=== PATIENT | female | born 1990 | race American Indian/Alaskan Native ===

== ENCOUNTER 2016-09-24 08:35 | Emergency (ER) | payer BC ==
[2016-09-24 08:55] VITALS: BP 126/73
--- NOTE | 2016-09-24 12:47 | Emergency Department Report ---
ED Headache HPI - General Chief Complaint: Headache Stated Complaint: PERSISTENT HEADACHES Time Seen by Provider: 09/24/16 12:30 - History of Present Illness Initial Comments: 26-year-old female past medical history migraine headaches presented with complaint of migraine headaches this week. Patient is awake alert and oriented 3 not in acute distress denies any fever or chills no neck rigidity no chest pain or shortness of breath no associated dizziness no diaphoresis no tinnitus no palpitations. Denies any dysuria no increased urinary frequency and no abdominal pain no reports of nausea or vomiting. Patient states that she ran out of her Fioricet prescription. The headache she has been experiencing intermittently throughout the week are classic of her migraine headaches. Patient has not followed up with her neurologist even though she has made appointments in the past. Patient denies any paresthesias no paralysis of upper or lower extremities is awake alert and oriented 3 fully lucid during clinical interview and able to answer questions appropriately no signs of clinical confusion or altered mental status. Denies any head trauma Timing/Duration: 1 week Quality: moderate Head Injury Location: frontal Recent Head Trauma: frequent headaches, chronic headaches Modifying Factors: improves with: medication Associated Symptoms: denies symptoms Allergies/Adverse Reactions: Allergies No Known Allergies Allergy (Unverified 09/24/16 08:47) Home Medications: Ambulatory Orders Butalb/Acetamin/Caff 50-325-40 [Fioricet] 1 tab PO Q6HR PRN #6 tab 09/24/16 ED Review of Systems ROS: Stated complaint: PERSISTENT HEADACHES Other details as noted in HPI ED Past Medical Hx - Past Medical History Additional medical history: Headache - Surgical History Past Surgical History?: Yes Additional Surgical History: Achilles Tendon - Social History Smoking Status: Never Smoker Substance Use Type: Alcohol - Medications Home Medications: Home Medications Medication Instructions Recorded Confirmed Last Taken Type Butalb/Acetamin/Caff 50-325-40 1 tab PO Q6HR PRN #6 tab 09/24/16 Unknown Rx [Fioricet] ED Physical Exam - General Limitations: No Limitations General appearance: alert, in no apparent distress - Head Head exam: Present: atraumatic, normocephalic - Eye Eye exam: Present: normal appearance, PERRL, EOMI - ENT ENT exam: Present: mucous membranes moist - Neck Neck exam: Present: normal inspection - Respiratory Respiratory exam: Present: normal lung sounds bilaterally. Absent: respiratory distress - Cardiovascular Cardiovascular Exam: Present: regular rate, normal rhythm. Absent: systolic murmur, diastolic murmur, rubs, gallop - GI/Abdominal GI/Abdominal exam: Present: soft, normal bowel sounds - Extremities Exam Extremities exam: Present: normal inspection - Back Exam Back exam: Present: normal inspection - Neurological Exam Neurological exam: Present: alert, oriented X3, CN II-XII intact, normal gait - Expanded Neurological Exam Expanded Patient oriented to: Present: person, place, time Speech: Present: fluid speech Cranial nerves: EOM's Intact: Normal, Gag Reflex: Normal, Tongue Deviation: Normal, Nystagmus: Normal, Facial Sensation: Normal, Facial Palsy with Forehead Movement: Normal, Facial Palsy without Forehead Movement: Normal Cerebellar function: Finger to Nose: Normal, Heel to Hinson: Normal Upper motor neuron: Stevie Neglect: Normal, Pronator Drift: Normal, Babinski Sign : Normal, Sensory Extinction: Normal Sensory exam: Upper Extremity Light Touch: Normal, Upper Extremity Pin Prick: Normal, Upper Extremity Temperature: Normal, UE 2 Point Discrimination: Normal, Lower Extremity Light Touch: Normal, Lower Extremity Pin Prick: Normal, Lower Extremity Temperature: Normal, LE 2 Point Discrimination: Normal Motor strength exam: RUE: 5, LUE: 5, RLE: 5, LLE: 5 DTR: bicep (R): 3+, bicep (L): 3+, tricep (R): 3+, tricep (L): 3+, knee (R): 3+ , knee (L): 3+, ankle (R): 3+, ankle (L): 3+ Best Eye Response ([place]): (4) open spontaneously Best Motor Response (Bascom): (6) obeys commands Best Verbal Response (Bascom): (5) oriented [place] Total: 15 - Psychiatric Psychiatric exam: Present: normal affect, normal mood - Skin Skin exam: Present: warm, dry, intact, normal color. Absent: rash ED Course Vital Signs 09/24/16 08:48 Temperature 99.0 F Pulse Rate 70 Respiratory 16 Rate Blood Pressure 126/73 O2 Sat by Pulse 100 Oximetry ED Medical Decision Making - Medical Decision Making A/P: Migraine headache 1- patient is completely asymptomatic at this time during clinical exam, no neurological deficits no hemiparesis no upper or lower extremity extremities, paresthesias no cranial nerve deficits on clinical exam cranial nerves I through XII grossly intact. 2- case discussed with Dr. Hoskins 3- will refer patient to primary care and neurology for migraine management 4-will give short prescription for Fioricet and event patient does experience migraine headache Critical care attestation.: If time is entered above; I have spent that time in minutes in the direct care of this critically ill patient, excluding procedure time. ED Disposition Clinical Impression: Migraine headache Qualifiers: Migraine type: without aura Status migrainosus presence: without status migrainosus Intractability: not intractable Qualified Code(s): G43.009 - Migraine without aura, not intractable, without status migrainosus Disposition: DISCHARGED TO HOME OR SELFCARE Is pt being admited?: No Does the pt Need Aspirin: No Condition: Stable Instructions: Migraine Headache (ED) Prescriptions: Butalb/Acetamin/Caff 50-325-40 [Fioricet] 1 tab PO Q6HR PRN #6 tab PRN Reason: Headache Referrals: CHELSEA CONTRERAS MD [Primary Care Provider] - 3-5 Days ELIZABETH MORELOS MD [Staff Physician] - 3-5 Days ROBBY HUITRON MD [Staff Physician] - 3-5 Days [facility] [Outside] - 3-5 Days Forms: Work/School Release Form(ED) Time of Disposition: 12:46
== END 2016-09-24 12:55 | disposition home or self-care (01) ==
LOC: ED 08:35
DX: G43.009 Migraine without aura, not intractable, without status migrainosus (principal)
CPT/HCPCS: 99282

== ENCOUNTER 2021-11-24 23:41 | Emergency (ER) | payer BC, OTHER ==
[2021-11-25 00:13] VITALS: BP 126/88
[2021-11-25 00:45] LABS: Bacteria,Urine 1+ /HPF (Negative); Bilirubin,Urine NEG (Negative); Blood,Urine NEG (Negative); Color,Urine Yellow (Yellow); Protein,Urine <15 mg/dL mg/dL (Negative); Urobilinogen,Urine < 2.0 mg/dL (<2.0)
[2021-11-25 01:12] LABS: Basophils % (Auto) 0.7 % (0.0-1.8); Eosinophils # (Auto) 0.1 K/mm3 (0.0-0.4); Hematocrit 37.4 % (30.3-42.9); Hemoglobin 12.2 gm/dl (10.1-14.3); Lymphocytes # (Auto) 1.3 K/mm3 (1.2-5.4); Lymphocytes % (Auto) 33.1 % (13.4-35.0); Mean Corpuscular HGB Conc 33 % (30-34); Mean Corpuscular Volume 93 fl (79-97); Monocytes # (Auto) 0.5 K/mm3 (0.0-0.8); Platelet Count 280 K/mm3 (140-440); Red Blood Count 4.03 M/mm3 (3.65-5.03); Red Cell Distribution Width 14.2 % (13.2-15.2)
[2021-11-25 01:35] LABS: Alanine Aminotransferase 22 units/L (7-56); Albumin 4.4 g/dL (3.9-5); Blood Urea Nitrogen 8 mg/dL (7-17); Calcium 9.5 mg/dL (8.4-10.2); Hemolysis Index 5
[2021-11-25 01:56] LABS: BUN/Creatinine Ratio 11
--- NOTE | 2021-11-25 02:31 | Emergency Department Report ---
ED Female HPI - General Chief complaint: Abdominal Pain Stated complaint: BLADDER PAIN Source: patient Mode of arrival: Ambulatory Limitations: No Limitations - History of Present Illness Initial comments: Patient is a 31-year-old -Burm[place] female with a history of migraine headaches and bladder spasms and was status post bladder pacemaker placement 3 months ago presents to the ED with complaint of acute onset persistent dysuria, urinary frequency and urgency, and suprapubic pressure and pain for the last 1 week, worse in the last 2 days. Patient states that she believes that her bladder pacemaker has been working but that the symptoms have been persistent and constant in the last 4 days. Patient denies fever, chills, nausea, vomiting, dizziness, syncope, diarrhea, low back pain, chest pain or shortness of breath, headache or low back pain. MD Complaint: dysuria, pelvic pain (Suprapubic pain), other (Urinary frequency and urgency) -: Sudden, week(s) (1) Location: suprapubic Radiation: non-radiating Severity: severe Severity scale (0 -10): 7 Quality: burning, aching Consistency: constant Improves with: none Worsens with: urination Are you Now?: No Associated Symptoms: denies other symptoms, abdominal pain (Suprapubic pain and pressure), dysuria. denies: vaginal discharge, vaginal bleeding, nausea/vomiting, fever/chills, headaches, loss of appetite, hematuria, rash, seizure, shortness of breath, syncope, weakness - Related Data Sexually active: Yes Previous Rx's Medication Instructions Recorded Last Taken Type Butalb/Acetamin/Caff 50-325-40 1 tab PO Q6HR PRN #6 tab 09/24/16 Unknown Rx [Fioricet] Ibuprofen [Motrin] 800 mg PO Q8HR PRN #30 tablet 11/25/21 Unknown Rx Oxybutynin [Ditropan] 5 mg PO TID #90 tab 11/25/21 Unknown Rx Phenazopyridine [Pyridium] 200 mg PO TID #24 tab 11/25/21 Unknown Rx cephALEXin [Keflex] 500 mg PO Q8HR #30 cap 11/25/21 Unknown Rx Allergies Allergy/AdvReac Type Severity Reaction Status Date / Time No Known Allergies Allergy Unverified 09/24/16 08:47 ED Review of Systems ROS: Stated complaint: BLADDER PAIN Other details as noted in HPI Constitutional: denies: chills, fever Eyes: denies: eye pain, eye discharge, vision change ENT: denies: ear pain, throat pain Respiratory: denies: cough, shortness of breath, wheezing Cardiovascular: denies: chest pain, palpitations Endocrine: no symptoms reported Gastrointestinal: abdominal pain (Suprapubic pressure and pain). denies: nausea, vomiting, diarrhea, constipation, hematemesis, melena, hematochezia Genitourinary: urgency, dysuria, frequency. denies: discharge, abnormal menses, dyspareunia Musculoskeletal: denies: back pain, joint swelling, arthralgia Skin: denies: rash, lesions Neurological: denies: headache, weakness, paresthesias Psychiatric: denies: anxiety, depression Hematological/Lymphatic: denies: easy bleeding, easy bruising ED Past Medical Hx - Past Medical History Additional medical history: Headache - Surgical History Additional Surgical History: Achilles Tendon - Social History Smoking Status: Never Smoker Substance Use Type: Alcohol - Medications Home Medications: Home Medications Medication Instructions Recorded Confirmed Last Taken Type Butalb/Acetamin/Caff 50-325-40 1 tab PO Q6HR PRN #6 tab 09/24/16 Unknown Rx [Fioricet] Ibuprofen [Motrin] 800 mg PO Q8HR PRN #30 tablet 11/25/21 Unknown Rx Oxybutynin [Ditropan] 5 mg PO TID #90 tab 11/25/21 Unknown Rx Phenazopyridine [Pyridium] 200 mg PO TID #24 tab 11/25/21 Unknown Rx cephALEXin [Keflex] 500 mg PO Q8HR #30 cap 11/25/21 Unknown Rx ED Physical Exam - General Limitations: No Limitations General appearance: alert, in no apparent distress - Head Head exam: Present: atraumatic, normocephalic, normal inspection - Eye Eye exam: Present: normal appearance, PERRL, EOMI Pupils: Present: normal accommodation - ENT ENT exam: Present: normal exam, normal orophraynx, mucous membranes moist, TM's normal bilaterally, normal external ear exam - Neck Neck exam: Present: normal inspection, full ROM. Absent: tenderness - Respiratory Respiratory exam: Present: normal lung sounds bilaterally. Absent: respiratory distress, wheezes, rales, rhonchi, stridor, chest wall tenderness, accessory muscle use, decreased breath sounds, prolonged expiratory - Cardiovascular Cardiovascular Exam: Present: regular rate, normal rhythm, normal heart sounds. Absent: systolic murmur, diastolic murmur, rubs, gallop - GI/Abdominal GI/Abdominal exam: Present: soft, tenderness (Palpable suprapubic tenderness), normal bowel sounds. Absent: guarding, rebound, hyperactive bowel sounds, hypoactive bowel sounds, organomegaly, mass - Bi-manual exam: Present: other (Pelvic exam deferred at this time) - Extremities Exam Extremities exam: Present: normal inspection, full ROM, normal capillary refill. Absent: tenderness - Back Exam Back exam: Present: normal inspection, full ROM. Absent: tenderness, CVA tenderness (R), CVA tenderness (L), muscle spasm, paraspinal tenderness, vertebral tenderness - Neurological Exam Neurological exam: Present: alert, oriented X3, CN II-XII intact, normal gait, reflexes normal - Psychiatric Psychiatric exam: Present: normal affect, normal mood - Skin Skin exam: Present: warm, dry, intact, normal color. Absent: rash ED Course Vital Signs 11/25/21 00:07 Temperature 98.6 F Pulse Rate 66 Respiratory 18 Rate Blood Pressure 126/88 O2 Sat by Pulse 100 Oximetry ED Medical Decision Making - Lab Data Result diagrams: 11/25/21 00:53 11/25/21 00:53 - Radiology Data [facility] [address] [place] [address] Cat Scan Report Signed Patient: ANSELMO HOWARD MR#: [id number] : 1990 Acct:[id number] Age/Sex: 31 / F ADM Date: 11/24/21 Loc: ED Attending Dr: Ordering Physician: ALLI STARKEY Date of Service: 11/25/21 Procedure(s): CT abdomen pelvis wo con Accession Number(s): [id number] cc: ALIL STARKEY CT ABDOMEN AND PELVIS WITHOUT CONTRAST INDICATION / CLINICAL INFORMATION: Pt complains of lower abdominal pain. TECHNIQUE: Axial CT images were obtained through the abdomen and pelvis without IV contrast. All CT scans at this location are performed using CT dose reduction for ALARA by means of automated exposure control. COMPARISON: None available. FINDINGS: LOWER CHEST: No significant abnormality of the imaged chest. LIVER: No significant abnormality. GALLBLADDER: No significant abnormality. BILE DUCTS: No significant abnormality. SPLEEN: No significant abnormality. PANCREAS: No significant abnormality. ADRENALS: No significant abnormality. RIGHT KIDNEY / URETER: No significant abnormality. LEFT KIDNEY / URETER: No significant abnormality. STOMACH / DUODENUM / SMALL BOWEL: No significant abnormality. COLON: No significant abnormality. APPENDIX: No significant abnormality. PERITONEUM: No free air or free fluid are present within the abdomen or pelvis. LYMPH NODES: No significant adenopathy. AORTA / ARTERIES: No significant abnormality. IVC / VEINS: No significant abnormality. URINARY BLADDER: No significant abnormality. REPRODUCTIVE ORGANS: No significant abnormality. ADDITIONAL ABDOMINAL/PELVIC FINDINGS: None. SKELETAL SYSTEM: Stimulator electrode within the lower right pelvis. Generator within the right lower flank. IMPRESSION: 1. No acute findings within the abdomen or pelvis. Signer Name: Angel Reynolds II, MD Signed: 11/25/2021 3:42 AM Workstation Name: [id number] Transcribed By: UZAIR Dictated By: ANGEL REYNOLDS II, MD Electronically Authenticated By: ANGEL REYNOLDS II, MD Signed Date/Time: 11/25/21341 DD/ 9 TD/TT: Print - Medical Decision Making This is a nulliparous 19-year-old -Burmese female with no past medical history presents to the ED with complaint of acute onset persistent right mandibular and maxillary premolar and molar toothache with swollen painful gums and headache for the last 2 days. Patient states that she has not been able to eat anything because of worsening pain. Patient states that she has been taking [id number] pain medications with no relief. In the ED, patient is alert and oriented x3 and is not in any distress. Patient is hemodynamically stable. Lab test results were reviewed and are all nonactionable. Patient was treated in the ED with Pyridium 200 mg p.o. x1. Abdomen pelvis CT scan without contrast showed no acute abnormalities. Patient symptoms are likely due to bladder spasm. Patient was therefore discharged home on medications and advised to follow-up with her urologist in 5 to 7 days for reevaluation or return to the ED immediately if symptoms get worse. - Differential Diagnosis Dysuria; UTI; bladder spasm; cystitis; pyelonephritis; Critical care attestation.: If time is entered above; I have spent that time in minutes in the direct care of this critically ill patient, excluding procedure time. ED Disposition Clinical Impression: Acute suprapubic pain, Painful bladder spasm, Dysuria Acute cystitis Qualifiers: Hematuria presence: without hematuria Qualified Code(s): N30.00 - Acute cystitis without hematuria Disposition: HOME / SELF CARE / HOMELESS Is pt being admited?: No Does the pt Need Aspirin: No Condition: Stable Instructions: Abdominal Pain (ED), Pelvic Pain, Female, [id number], Dysuria, Urinary Tract Infection, Adult, [id number] Additional Instructions: All lab test results were reviewed and are all nonactionable. Abdomen pelvis CT scan without contrast showed no acute abnormalities. Your symptoms likely due to bladder spasm or cystitis. Therefore take medications with food, drink plenty of fluids follow-up with your primary care physician or urologist in 5 to 7 days for reevaluation. Return to the ED immediately if symptoms get worse. Prescriptions: Oxybutynin [Ditropan] 5 mg PO TID #90 tab cephALEXin [Keflex] 500 mg PO Q8HR #30 cap Ibuprofen [Motrin] 800 mg PO Q8HR PRN #30 tablet PRN Reason: Pain , Severe (7-10) Phenazopyridine [Pyridium] 200 mg PO TID #24 tab Referrals: SUMAYA MORRIS MD [Staff Physician] - 3-5 Days Time of Disposition: 04:21 Print Language: MALDIVIAN
--- NOTE | 2021-11-25 03:46 | Cat Scan Report ---
CT ABDOMEN AND PELVIS WITHOUT CONTRAST INDICATION / CLINICAL INFORMATION: Pt complains of lower abdominal pain. TECHNIQUE: Axial CT images were obtained through the abdomen and pelvis without IV contrast. All CT scans at this location are performed using CT dose reduction for ALARA by means of automated exposure control. COMPARISON: None available. FINDINGS: LOWER CHEST: No significant abnormality of the imaged chest. LIVER: No significant abnormality. GALLBLADDER: No significant abnormality. BILE DUCTS: No significant abnormality. SPLEEN: No significant abnormality. PANCREAS: No significant abnormality. ADRENALS: No significant abnormality. RIGHT KIDNEY / URETER: No significant abnormality. LEFT KIDNEY / URETER: No significant abnormality. STOMACH / DUODENUM / SMALL BOWEL: No significant abnormality. COLON: No significant abnormality. APPENDIX: No significant abnormality. PERITONEUM: No free air or free fluid are present within the abdomen or pelvis. LYMPH NODES: No significant adenopathy. AORTA / ARTERIES: No significant abnormality. IVC / VEINS: No significant abnormality. URINARY BLADDER: No significant abnormality. REPRODUCTIVE ORGANS: No significant abnormality. ADDITIONAL ABDOMINAL/PELVIC FINDINGS: None. SKELETAL SYSTEM: Stimulator electrode within the lower right pelvis. Generator within the right lower flank. IMPRESSION: 1. No acute findings within the abdomen or pelvis. Signer Name: Pankaj Castro II, MD Signed: 11/25/2021 3:42 AM Workstation Name: [id number]
[2021-11-25] MEDS: PHENAZOPYRIDINE 200 MG TAB PO ONE (05:05)
[2021-11-25] MEDS: IBUPROFEN 600 MG TAB PO ONE (05:05)
[2021-11-25] MEDS ORDERED: OXYBUTYNIN 5 MG TAB PO ONE (05:46)
== END 2021-11-25 04:56 | disposition home or self-care (01) ==
LOC: ED 23:41
DX: N30.00 Acute cystitis without hematuria (principal); Z72.89 Other problems related to lifestyle; Z79.899 Other long term (current) drug therapy
CPT/HCPCS: 36415; 74176; 80053; 81001; 84703; 85025; 99284